=== PATIENT | male | born 1965 | race Caucasian/White ===

== ENCOUNTER → 2018-10-03 | Emergency (ER) | payer OTHER, SELFPAY ==
[~2018-10-03] VITALS: Ht 182.9 cm; Wt 81.6 kg
--- NOTE | 2018-10-03 16:20 | Emergency Room Report ---
History of Present Illness General Chief Complaint: Edema Source: Patient Present Illness HPI This patient left prior to evaluation by medical provider. Allergies: Coded Allergies: No Known Allergies (Verified Allergy, Unknown, 02/08/10) Nursing Documentation-[facility] Past Medical History: No Stated History Physical Exam Vital Signs Date Time Temp Pulse Resp B/P (MAP) Pulse Ox O2 Delivery O2 Flow Rate FiO2 10/03/18 15:48 98.4 94 18 97 Room Air Medical Decision Making PA Attestation Dr. Parrish is my supervising Physician whom patient management has been discussed with. ER Course This patient left prior to evaluation by medical provider. Last Vital Signs Date Time Temp Pulse Resp B/P (MAP) Pulse Ox O2 Delivery O2 Flow Rate FiO2 10/03/18 15:48 98.4 94 18 97 Room Air Disposition: LEFT W/OUT BEING SEEN Condition: Unknown Referrals: [facility],REFERR[facility] (PCP) Syeda Funez Oct 03, 2018 16:20
== END | disposition left against medical advice (07) ==
LOC: EMR 16:10
DX: R60.0 Localized edema (principal); Z53.21 Procedure and treatment not carried out due to patient leaving prior to being seen by health care provider